=== PATIENT | male | born 1995 | race Caucasian/White ===

== ENCOUNTER 2017-02-17 10:56 | Outpatient (CLI) | payer BC ==
[2014-01-08 22:02] VITALS: BP 120/68
[2017-02-17 11:14] LABS: BASOPHILS % 2.2 (0.0-1.5); MEAN CORPUSCULAR HEMOGLOBIN 30.2 pg (28.0-34.0); MEAN CORPUSCULAR VOLUME 84.9 fl (80.0-100.0); MONOCYTES % 4.3 % (0.0-11.0); NEUTROPHILS # 3.1 # k/uL (1.4-7.7)
[2017-02-17 11:29] LABS: eGFR (African) > 60; eGFR (Non-African) > 60
--- NOTE | 2017-02-17 15:07 | Diagnostic Imaging Report ---
MONY GARY [facility] [address] [facility] [address] [place], [place]. [address] Report Submission Date: Feb 17, 2017 11:22:56 AM CDT Patient Study Name: ADELINA TEJEDA Date: Feb 17, 2017 11:01:26 AM CDT Modality Type: CR Gender: M Description: CHEST : 89 Institution: [facility] Physician: MONY GRAY Examination: PA and lateral chest. History: Evaluate lung queen. Findings: PA lateral chest demonstrate a normal cardiac and mediastinal silhouette. No focal infiltrate. No effusion. No blunting of the costophrenic margins. Osseous structures are appropriate for age. Impression: No acute process. Electronically signed on Feb 17, 2017 11:22:56 AM CDT by: Nirav GONZALEZ
== END 2017-02-17 10:57 ==
LOC: RAD 10:56
PROVIDERS: ATTEND Family Medicine
DX: R50.9 Fever, unspecified (principal)
CPT/HCPCS: 36415; 71020; 80053; 85025

== ENCOUNTER 2017-02-21 11:30 | Outpatient (CLI) | payer BC ==
[2014-01-08 22:02] VITALS: BP 120/68
== END 2017-02-21 11:32 ==
LOC: LAB 11:30
PROVIDERS: ATTEND Family Medicine
DX: R50.9 Fever, unspecified (principal)
CPT/HCPCS: 36415; 87040; 87086

== ENCOUNTER 2018-01-18 11:43 | Outpatient (CLI) | payer BC ==
[2014-01-08 22:02] VITALS: BP 120/68
[2018-01-18 12:25] LABS: eGFR (African) > 60; eGFR (Non-African) > 60
== END 2018-01-18 13:31 ==
LOC: LAB 11:43
PROVIDERS: ATTEND Physician Assistant
DX: F41.9 Anxiety disorder, unspecified (principal); R00.0 Tachycardia, unspecified; R61 Generalized hyperhidrosis
CPT/HCPCS: 36415; 80053; 84439; 84443; 84481